=== PATIENT | female | born 1935 | race Caucasian/White ===

== ENCOUNTER → 2018-12-02 | Outpatient (CLI) | payer MEDICARE ==
[~2018-12-02] MED LIST: CHOL100012 PO; CYAN500L2 PO; DILT120T3 PO; ESOM20CA PO; HYDR25TA6 PO; MULT-326 PO; NAPR1TAB25 PO; UBID100C24 PO; [UNRECOGNIZED DRUG - OTHER] PO
== END | disposition home or self-care (01) ==
LOC: SUSANVILLE 08:00
PROVIDERS: ATTEND Internal Medicine Cardiovascular Disease
DX: I08.1 Rheumatic disorders of both mitral and tricuspid valves (principal); I10 Essential (primary) hypertension; E78.5 Hyperlipidemia, unspecified
CPT/HCPCS: 93306

== ENCOUNTER 2019-01-23 11:32 | Inpatient (IN) | payer MEDICARE, MEDICAID ==
[~2019-01-23] VITALS: Ht 170.2 cm; Wt 89.6 kg
[2019-01-24 14:45] VITALS: BP 12/66
== END 2019-01-24 18:14 | disposition home or self-care (01) | DRG 281 ==
LOC: ED 11:45 → EDIP 11:54 → 5SO 12:46
PROVIDERS: ADMIT Internal Medicine; ATTEND Internal Medicine
DX: I21.A1 Myocardial infarction type 2 (principal); C56.9 Malignant neoplasm of unspecified ovary; R11.0 Nausea; E78.00 Pure hypercholesterolemia, unspecified; E78.5 Hyperlipidemia, unspecified; I10 Essential (primary) hypertension; Z82.49 Family history of ischemic heart disease and other diseases of the circulatory system; Z83.3 Family history of diabetes mellitus; Z85.118 Personal history of other malignant neoplasm of bronchus and lung; Z85.3 Personal history of malignant neoplasm of breast; Z85.41 Personal history of malignant neoplasm of cervix uteri; Z85.820 Personal history of malignant melanoma of skin; Z90.12 Acquired absence of left breast and nipple; Z90.710 Acquired absence of both cervix and uterus; Z96.642 Presence of left artificial hip joint; Z96.653 Presence of artificial knee joint, bilateral; Z88.2 Allergy status to sulfonamides; Z88.8 Allergy status to other drugs, medicaments and biological substances; R52 Pain, unspecified
CPT/HCPCS: 36415; 71045; 78452; 80048; 80053; 80061; 83036; 83880; 84100; 84439; 84443; 84484; 85025; 85610; 85651; 93005; 93017; 93306; G0378; J1650; J2785; A9502; C9898